=== PATIENT | female | born 1985 | race African-American/Black ===

== ENCOUNTER 2023-11-05 20:45 | Emergency (ER) | payer MEDICAID ==
[2023-11-05 21:05] VITALS: PULSE 110
[2023-11-06] MEDS ORDERED: IBUP-2029 MT (13:00)
== END 2023-11-06 00:49 | disposition left against medical advice (07) ==
LOC: ER 20:45
DX: M79.644 Pain in right finger(s) (principal); Z53.21 Procedure and treatment not carried out due to patient leaving prior to being seen by health care provider
CPT/HCPCS: 99281

== ENCOUNTER 2023-11-06 11:28 | Emergency (ER) | payer BC, MEDICAID ==
[~2023-11-06] VITALS: Ht 170.2 cm; Wt 100.0 kg
[2023-11-06 11:34] VITALS: O2SAT 99
[2023-11-06] MEDS ORDERED: IBUP-2029 MT (13:00)
[2023-11-06] MEDS: KETOROLAC 30MG/ML VIAL IM ONE (13:33)
[2023-11-06 13:39] VITALS: BP 134/89; PULSE 65; RESP 18; TEMP 98.7
== END 2023-11-06 14:46 | disposition home or self-care (01) ==
LOC: ER 11:28
DX: S69.91XA Unspecified injury of right wrist, hand and finger(s), initial encounter (principal); M79.641 Pain in right hand; X58.XXXA Exposure to other specified factors, initial encounter; Y93.89 Activity, other specified; Y92.89 Other specified places as the place of occurrence of the external cause; Y99.8 Other external cause status
CPT/HCPCS: 73120; 99283

== ENCOUNTER 2024-03-16 09:47 | Emergency (ER) | payer MEDICAID ==
[~2024-03-16] VITALS: Ht 172.7 cm; Wt 105.0 kg
[~2024-03-16 09:47] MED LIST: IBUP-2029 MT
[2024-03-16 10:04] VITALS: BP 136/96; PULSE 90; RESP 18; TEMP 98.2; O2SAT 98
[2024-03-16] MEDS ORDERED: CYCL10TA21 MT (11:43)
== END 2024-03-16 12:55 | disposition home or self-care (01) ==
LOC: ER 09:51
DX: M25.512 Pain in left shoulder (principal); Z98.890 Other specified postprocedural states; Z88.6 Allergy status to analgesic agent
CPT/HCPCS: 99283